=== PATIENT | male | born 1980 | race Caucasian/White ===

== ENCOUNTER 2016-08-20 12:53 | Emergency (ER) | payer SELFPAY ==
[2016-08-20 12:59] VITALS: BP 138/81; PULSE 75; TEMP 98.2; BMI 29.8
[2016-08-20] MEDS ORDERED: TETRACAINE 0.5% OPHTH SOLN 2 ML BOTTLE ONE (13:12)
[2016-08-20] MEDS ORDERED: ERYTHROMYCIN 0.5% OPHTHALMIC OINTMENT 3.5 GM TUBE ONE (13:53)
--- NOTE | 2016-08-20 13:57 | PDOC ---
History of Present Illness - General Chief Complaint: Eye Problem Stated Complaint: EYE PROBLEM Time Seen by Provider: 08/20/16 13:09 History Source: Patient Exam Limitations: No Limitations - History of Present Illness Initial Comments: 08/20/16 13:37 Patient states felt foreign body fly and his eye yesterday with a went, has continued pain, redness, tearing to his left thigh but states visual acuity is intact. No. drainage, no fevers, no recent URI or no one else at home with conjunctivitis. Occurred: reports: yesterday Severity: reports: mild, moderate Associated Symptoms (Fall): denies symptoms Past History - Travel Traveled outside of the country in the last 30 days: No Close contact w/someone who was outside of country & ill: No - Past Medical History Allergies/Adverse Reactions: Allergies Allergy/AdvReac Type Severity Reaction Status Date / Time No Known Allergies Allergy Verified 08/20/16 12:59 Home Medications: Ambulatory Orders NK [No Known Home Medication] 04/04/15 Other medical history: NONE - Psycho/Social/Smoking Cessation Hx Anxiety: No Suicidal Ideation: No Smoking History: Never smoked Hx Alcohol Use: No Drug/Substance Use Hx: No Substance Use Type: None Trauma Specific PMHX - Complaint Specific PMHX Back Injury: Yes Review of Systems - Review of Systems Able to Perform ROS?: Yes Is the patient limited Slovenian proficient: Yes Constitutional: Yes: Symptoms Reported, See HPI, Malaise HEENTM: Yes: Symptoms Reported, Eye Pain, Blurred Vision (visiom but within normal limits, with foreign body sensation), Tearing All Other Systems: Reviewed and Negative *Physical Exam - Vital Signs Last Vital Signs Temp Pulse Resp BP Pulse Ox 98.2 F 75 20 138/81 99 08/20/16 12:56 08/20/16 12:56 08/20/16 12:56 08/20/16 12:56 08/20/16 12:56 - Physical Exam General Appearance: Yes: Nourished, Appropriately Dressed, Apparent Distress, Mild Distress HEENT: positive: ALFONSO, Normal ENT Inspection, TMs Normal, Nasal Congestion ( clear ), Rhinorrhea, Other (1 mm dark foreign body noted midpoint left eye over pupil. ) Neck: positive: Supple. 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 Erythromycin ointment applied) Progress Note - Progress Note Progress Note: Foreign body left cornea will treat with antibiotic ointment, and follow-up with ophthalmology *DC/Admit/Observation/Transfer Diagnosis at time of Disposition: Corneal foreign body Qualifiers: Encounter type: initial encounter Laterality: left Qualified Code(s): T15.02XA - Foreign body in cornea, left eye, initial encounter - Discharge Dispostion Disposition: HOME Condition at time of disposition: Stable Admit: No - Referrals Referrals: Mike Jose MD [Staff Physician] - - Patient Instructions Printed Discharge Instructions: DI for Corneal Foreign Body-Eye Additional Instructions: Rest, avoid rubbing eyes Wash hands frequently as this is very contagious Wash hands, use eye ointment as directed, wash hands after use Followup with ophthalmology or private physician as needed Dr. Jose will call you to arrange appointment with each other - Post Discharge Activity Work/School Note: Back to Work
[2016-08-20] MEDS ORDERED: OXYCODONE/APAP 5/325MG COMBO TABLET ONE (14:16)
== END 2016-08-20 14:20 | disposition home or self-care (01) ==
LOC: JERFT 12:53
PROC: 08C9XZZ Extirpation of Matter from Left Cornea, External Approach (ICD-10-PCS; principal; 2016-08-20)
DX: T15.02XA Foreign body in cornea, left eye, initial encounter (principal)
CPT/HCPCS: 99281-25

== ENCOUNTER 2020-09-25 18:17 | Emergency (ER) | payer SELFPAY ==
[2020-09-25 18:28] VITALS: BP 138/88; PULSE 65; TEMP 98.2; BMI 29.8
[2020-09-25] MEDS ORDERED: FLUORESCEIN NA 1 EA STRIP OD ONE (18:51)
[2020-09-25] MEDS ORDERED: TETRACAINE 0.5% HCL 0.6ML DROPPER.BOTTLE OD ONE (18:51)
[2020-09-25] MEDS ORDERED: FLUORESCEIN NA 1 EA STRIP ONE (18:52)
[2020-09-25] MEDS ORDERED: TETRACAINE 0.5% OPHTH SOLN 2 ML BOTTLE ONE (18:52)
[2020-09-25] MEDS ORDERED: ERYTHROMYCIN 0.5% OPHTHALMIC OINTMENT 3.5 GM TUBE OD ONE (19:08)
[2020-09-25] MEDS ORDERED: KETOROLAC TROMETHAMINE 30 MG/1 ML VIAL IM ONE (19:08)
[2020-09-25] MEDS ORDERED: KETOROLAC TROMETHAMINE 30 MG/1 ML VIAL ONE (19:15)
[2020-09-25] MEDS ORDERED: ERYTHROMYCIN 0.5% OPHTHALMIC OINTMENT 3.5 GM TUBE ONE (19:16)
[2020-09-25] MEDS ORDERED: DIPHTH,PERTUSS(ACELL),TET 0.5 ML DISP.SYRIN IM ONE ×2 (19:30→19:51)
== END 2020-09-25 22:06 | disposition home or self-care (01) ==
LOC: JERFT 18:17
PROC: 3E0233Z Introduction of Anti-inflammatory into Muscle, Percutaneous Approach (ICD-10-PCS; principal; 2020-09-25)
PROC: 3E0234Z Introduction of Serum, Toxoid and Vaccine into Muscle, Percutaneous Approach (ICD-10-PCS; 2020-09-25)
DX: S05.01XA Injury of conjunctiva and corneal abrasion without foreign body, right eye, initial encounter (principal)
CPT/HCPCS: 90715; 99284-25